=== PATIENT | female | born 1945 | race Caucasian/White ===

== ENCOUNTER 2020-05-06 14:28 | Observation (INO) ==
[2020-05-06] MEDS ORDERED: DILTIAZEM 50 MG/10 ML VIAL IV STA (15:58)
[2020-05-06] MEDS ORDERED: DILTIAZEM 50 MG/10 ML VIAL IV ONE (15:59)
[2020-05-06 16:49] LABS: Albumin 3.6 G/DL (3.4-5.0); Bilirubin,Total 0.5 MG/DL (0.2-1.0); Calcium 9.3 MG/DL (8.5-10.1); Osmolality,Calculated 282.8 MOS/KG (273-304); Thyroid Stimulating Hormone 0.901 uIU/ml (0.358-3.74)
[2020-05-06 17:10] LABS: Basophils # 0.1 10*3/uL (0.0-0.2); Basophils % 0.5 % (0.0-0.8); Eosinophils # 0.2 10*3/uL (0.0-0.87); Eosinophils % 1.4 % (0.00-10.9); Hematocrit 42.6 VOL% (35.7-47.0); Hemoglobin 13.9 GM/DL (12.0-16.0); Immature Granulocytes % 0.2 %; Immature Granulocytes Absolute 0.02 #; Lymphocytes # 2.9 10*3/uL (1.4-4.0); Lymphocytes % 27.7 % (21.3-54.2); Mean Corpuscular HGB Conc 32.6 GM/DL (32-36); Mean Corpuscular Volume 87.7 FL (87-102); Mean Platelet Volume 10.1 FL (9.6-12.0); Monocytes % 5.6 % (1.7-12.7); Neutrophils % 64.6 % (38.7-73.9); Platelet Count 390 T/CUMM (130-400); Red Blood Count 4.86 MC/CUMM (3.8-5.5); Red Cell Distribution Width 13.6 % (9.3-17.3); White Blood Count 10.4 T/CUMM (4-12)
[2020-05-06 17:17] LABS: PT Patient Result 10.5 SECS (9.8-11.9); Partial Thromboplastin Time 27.6 SECS (23.9-33.8)
[2020-05-06] MEDS ORDERED: ENOXAPARIN 40 MG/0.4 ML SYRINGE SUBCUT SCH (18:00)
[2020-05-06] MEDS ORDERED: SODIUM CHLORIDE 0.9% 500 ML IV ONE (18:23)
[2020-05-06] MEDS ORDERED: ENOXAPARIN 100 MG/ML SYRINGE SUBCUT STA (18:25)
[2020-05-06 19:58] LABS: Bacteria,Urine Occasional /HPF (Few); Bilirubin,Urine Negative (Negative); Blood, Urine Small mg/dL (Negative); Glucose,Urine (UA) Negative (Negative); Ketones,Urine Negative (Negative); Nitrite,Urine Negative (Negative); Protein,Urine Negative; RBC,Urine 1 /HPF (0-4); Squamous Epithelial Cell,Urine Occasional /HPF (0-10); Urine Appearance CLEAR (Clear); Urine Color Yellow (Yellow); Urine Specific Gravity 1.017 (1.001-1.035); Urine Urobilinogen < 2.0 EU/DL (0.2-1.0); WBC,Urine 1 /HPF (0-6)
[2020-05-07] MEDS ORDERED: MELATONIN 3 MG TABLET PO PRN (00:25)
[2020-05-07] MEDS ORDERED: CALCIUM CARBONATE CHEW 500 MG TABLET PO PRN (00:25)
[2020-05-07 05:25] LABS: Basophils % 0.5 % (0.0-0.8); Eosinophils # 0.2 10*3/uL (0.0-0.87); Eosinophils % 2.5 % (0.00-10.9); Hematocrit 38.5 VOL% (35.7-47.0); Hemoglobin 12.2 GM/DL (12.0-16.0); Immature Granulocytes % 0.4 %; Immature Granulocytes Absolute 0.03 #; Lymphocytes # 3.4 10*3/uL (1.4-4.0); Lymphocytes % 40.1 % (21.3-54.2); Mean Corpuscular HGB Conc 31.7 GM/DL (32-36); Mean Corpuscular Volume 89.1 FL (87-102); Mean Platelet Volume 9.5 FL (9.6-12.0); Monocytes % 8.7 % (1.7-12.7); Neutrophils % 47.8 % (38.7-73.9); Platelet Count 314 T/CUMM (130-400); Red Blood Count 4.32 MC/CUMM (3.8-5.5); Red Cell Distribution Width 13.5 % (9.3-17.3); White Blood Count 8.5 T/CUMM (4-12)
[2020-05-07 05:57] LABS: Albumin 3.1 G/DL (3.4-5.0); Bilirubin,Total 1.4 MG/DL (0.2-1.0); Osmolality,Calculated 281.5 MOS/KG (273-304); Risk Ratio 4.75; VLDL CHOLESTEROL 35.4 MG/DL
[2020-05-07] MEDS: DILTIAZEM 30 MG TABLET PO SCH ×4 (07:08→12:23)
[2020-05-07] MEDS ORDERED: EZETIMIBE 10 MG TABLET PO SCH (09:00)
[2020-05-07] MEDS ORDERED: ESCITALOPRAM 10 MG TABLET PO SCH (09:00)
[2020-05-07] MEDS ORDERED: LISINOPRIL/HCTZ 20-12.5 MG TABLET PO SCH (09:00)
[2020-05-07] MEDS ORDERED: ASPIRIN EC 81 MG TABLET PO SCH (09:00)
[2020-05-07] MEDS ORDERED: OMEGA 3 ACID ETHYL ESTERS 1 GM CAPSULE PO SCH (09:00)
[2020-05-07] MEDS ORDERED: PANTOPRAZOLE 40 MG TABLET PO SCH (09:00)
[2020-05-07] MEDS ORDERED: INFLUENZA VIRUS VACCINE 0.5 ML SYRINGE IM ONE (09:00)
[2020-05-07 15:29] LABS: Free T4 (Free Thyroxine) 1.2 NG/DL (0.76-1.46)
[2020-05-07] MEDS ORDERED: DILTIAZEM CD 240 MG CAPSULE PO SCH (16:00)
[2020-05-07 17:27] VITALS: BP 137/85
[2020-05-07] MEDS ORDERED: ROSUVASTATIN 20 MG TABLET PO SCH (21:00)
== END 2020-05-07 17:51 | disposition home or self-care (01) ==
LOC: N.ED 14:28 → N.EDINP 14:28 → SUATTDRO 17:44 → N.EDINP 19:40 → N.TELEN 20:05
PROVIDERS: ADMIT Internal Medicine; ATTEND Internal Medicine